=== PATIENT | male | born 2005 | race Caucasian/White ===

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

== ENCOUNTER 2024-06-04 08:48 | Outpatient (CLI) | payer BC, SELFPAY | END 2024-06-04 08:49 | disposition home or self-care (01) | PROVIDERS: PCP Internal Medicine; Visit Provider Internal Medicine | DX: Z13.228 Encounter for screening for other metabolic disorders (principal); Z13.6 Encounter for screening for cardiovascular disorders | CPT/HCPCS: 80053; 80061 ==

== ENCOUNTER 2024-07-17 02:10 | Outpatient (CLI) | payer BC, SELFPAY | END 2024-07-17 02:11 | disposition home or self-care (01) | PROVIDERS: PCP Internal Medicine; Visit Provider Family Medicine | DX: S69.91XA Unspecified injury of right wrist, hand and finger(s), initial encounter (principal); Y04.2XXA Assault by strike against or bumped into by another person, initial encounter; Y92.169 Unspecified place in school dormitory as the place of occurrence of the external cause | CPT/HCPCS: A0998 ==

== ENCOUNTER 2024-07-17 02:28 | Emergency (ER) | payer BC, SELFPAY ==
--- OUTSIDE RECORDS SUMMARY | 2024-07-17 02:30 | XMS_ITS | Encounter Summary ---
Author Organization [facility], [facility], [facility], and Affiliates Address [address] [place] [address] Care Team Providers Care Heel Seater Name Role Phone Provider, Not Confirmed Primary Care Provider Un available Epifanio Caicedo MD Primary Care Provider Encounter Details Date Type Department Care Team (Late st Contact Info) Description 10/06/2020 Orders Only [facility] Sports Medicine [address] [place] [id number] Sharon Haynes MD [address] [place] [id number] Left knee pain, unspecified chronicity (Primary Dx) Social History Tobacco Use Types Packs/Day Years Used Date Smoking Tobacco: Never Assessed Sex and Gender Information Value Date Recorded Sex Assigned at Not on file Legal Sex Male 2:16 PM PST Gender Identity Not on file Sexual Orientation Not on file documented as of this encounter Plan of Treatment Not on file documented as of this encounter Results * XR Knee 3 Views, Left (10/07/2020 5:29 PM PDT) Anatomical Region Laterality Modality Knee Left Digital Radiogra phy 10/07/2020 6:04 PM PDT Impressions 10/07/2020 6:13 PM PDT Small suprapatellar joint effusion with medial knee soft tissue swelling. No acute osseous abnormality. Report dictated by: Kavita De Anda, signed by: Scottie Espinal MD Department of Radiology and Biomedical Imaging Narrative 10/07/2020 6:13 PM PDT XR KNEE 3 VIEWS, LEFT 10/07/2020 5:29 PM INDICATION: Age: 14 years Gender: Male. History: pain vs injury r/o fracture COMPARISON: None FINDINGS: Hardware: None Bones/joints: No evidence of acute fracture. Osseous mineralization subjectively within normal limits. Joints spaces appear normal. Small suprapatellar joint effusion. The patella is well situated within the trochlear groove on the merchant views. Soft tissues: Medial knee soft tissue swelling most conspicuous on the merchant view Procedure Note Scottie Espinal MD - 10/07/2020 XR KNEE 3 VIEWS, LEFT 10/07/2020 5:29 PM INDICATION: Age: 14 years Gender: Male. History: pain vs injury r/ofracture COMPARISON: None FINDINGS: Hardware: None Bones/joints: No evidence of acute fracture. Osseous mineralizationsubjectively within normal limits. Joints spaces appear normal. Smallsuprapatellar joint effusion. The patella is well situated within thetrochlear groove on the merchant views. Soft tissues: Medial knee soft tissue swelling most conspicuous on themerchant view IMPRESSION: Small suprapatellar joint effusion with medial knee soft tissue swelling.No acute osseous abnormality. Report dictated by: Kavita De Anda, signed by: Scottie Espinal MD Department of Radiology and Biomedical Imaging Sharon Haynes MD IMG DIAGNOSTIC IMAGING OR DERABLES Final Result documented in this encounter Visit Diagnoses Diagnosis Left knee pain, unspecified chronicity- Primary Left knee pain, unspecified chronicity documented in this encounter Care Teams Heel Seater Relationship Specialty Start Date End Date Provider, Not Confirmed PCP - General 06/08/20 10/25/20 Epifanio Caicedo MD [address] [place] [id number] PCP - General Pediatrics 10/26/20 documented as of this encounter
--- OUTSIDE RECORDS SUMMARY | 2024-07-17 02:30 | XMS_ITS | Referral Summary ---
Author Organization [facility], [facility], [facility], and Affiliates Address [address] [place] [address] Care Team Providers Care Money Position Officer Name Role Phone Epifanio Caicedo MD Primary Care Provider Allergies Active Allergy Reactions Criticality Noted Date Comments Milk Rash Low 10/07/2020 GI upset Medications * This document contains information received from the source organization and may not represent a complete record from that organization. No known medications Active Problems Problem Noted Date Diagnosed Date Dislocation of left patella 11/14/2020 Immunizations Name Administration Dates Next Due IZI-collecte Sars-Cov-2 Vaccine (Purple Top) 1,06/08/2020 Social History Tobacco Use Types Packs/Day Years Used Date Smoking Tobacco: Never Smokeless Tobacco: Never Alcohol Use Standard Drinks/Week Comments Never 0 (1 standard drink = 0.6 oz pur e alcohol) Sex and Gender Information Value Date Recorded Sex Assigned at Not on file Legal Sex Male 2:16 PM PST Gender Identity Not on file Sexual Orientation Not on file Last Filed Vital Signs Vital Sign Reading Time Taken Comments Blood Pressure - - Pulse - - Temperature - - Respiratory Rate - - Oxygen Saturation - - Inhaled Oxygen Concentration - - Weight 72.6 kg (160 lb) 10/21/2020 2:02 PM PDT Height 188 cm (6' 2) 10/21/2020 2:02 PM PDT Body Mass Index 20.54 10/21/2020 2:02 PM PDT Plan of Treatment [place] [id number] [employer] Care Teams Money Position Officer Relationship Specialty Start Date End Date Epifanio Caicedo MD [address] [place] [id number] PCP - General Pediatrics 10/26/20
--- OUTSIDE RECORDS SUMMARY | 2024-07-17 02:30 | XMS_ITS | Clinical Summary ---
Author Organization [facility], [facility], [facility], and Affiliates Address [address] [place] [address] Care Team Providers Care Store Person Name Role Phone Epifanio Caicedo MD Primary [...] 11/14/2020 Immunizations Name Administration Dates Next Due Pfizer Sars-Cov-2 Vaccine (Purple Top) 1,06/08/2020 Social History [...] 10/21/2020 2:02 PM PDT Plan of Treatment Health Maintenance Due Date Last Done Comments Hepatitis B Routine Screening 2003 Chlamydia and Gonorrhea Screening 2019 HIV Routine Screening 10/10/2021 Hepatitis C Routine Screening 10/10/2021 Tobacco Screening 10/10/2021 Covid-19 Vaccine ( season) 2023 11/06/2021, 02/09/2021, 06/30/2020, Additional history exists Influenza Vaccines (Season Ended) 2024 11/06/2021, 12/14/2020, 11/18/2019, Additional history exists Td Immunization 11/26/2024 11/26/2014 Zoster Vaccines (1 of 2) 10/10/2053 Hepatitis B Vaccines Completed 07/13/2004, 01/20/2004, 2003 Pneumococcal Vaccine (0-49 years) Aged Out 01/10/2005, 01/10/2005, 04/13/2004, Additional history exists No longer eligible based on patient's age to complete this topic Tdap Immunization Completed 11/26/2014 HPV Vaccines Completed 11/18/2019, 04/25/2018 Meningitis B Vaccines Completed 10/02/2022, [address] [place] [id number] [employer] Care Teams Store Person Relationship Specialty Start Date End Date Epifanio Caicedo MD [address] [place] [id number] PCP - General Pediatrics 10/26/20
--- NOTE | 2024-07-17 02:32 | CRLHL7_ITS ---
For Patients: As a result of the Cures Act, medical imaging exams and procedure reports are released immediately into your electronic medical record. You may view this report before your referring provider. If you have questions, please contact your health care provider. Indication: Right hand injury. Technique: Right hand 3 views. Comparison: None. Findings/impression: Bones: Acute fracture of the 5th metacarpal head/neck with mild displacement and angulation. Intra-articular involvement of the MCP joint. Joint spaces: Unremarkable. Soft tissues: Soft tissue swelling adjacent to the 5th MCP joint. Dictated by Luis Alfredo Menezes MD @ 07/17/2024 2:57:34 AM (Electronically Signed)
[2024-07-17 02:33] VITALS: BP 151/82; PULSE 85; RESP 18; TEMP 36.9; O2SAT 99; BMI 23.1
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
--- OUTSIDE RECORDS SUMMARY | 2024-07-17 03:49 | XMS_ITS | Clinical Summary ---
Author Organization [facility] Address [address] [place] [id number] Care Team Providers Care Movie Extra Name Role Phone None Primary Care Provider Unavailabl e Allergies No known active allergies Medications No known medications Encounters Date Type Department Care Team Description 05/28/2024 9:05 AM CDT Office Visit [facility] [address] [place] [address] Figueroa Finnegan MD Musculoskeletal Problem (Consultation for LEFT Knee Pain and Swelling. Woke up 3-4 weeks ago with severe pain/History of subluxation /) 05/27/2024 Travel from Last 3 Months Social History Tobacco Use Types Packs/Day Years Used Date Smoking Tobacco: Never Smokeless Tobacco: Never Tobacco Cessation:Counseling Given: Yes Alcohol Use Standard Drinks/Week Comments Yes 0 (1 standard drink = 0.6 oz pur e alcohol) 4 drinks every other week Social Connections Answer Date Recorded Do you often feel lonely or isolated from those around you? 0 05/28/2024 Financial Resource Strain Answer Date R ecorded Difficulty of Paying Living Expenses 3 05/28/2024 Difficulty of Paying Living Expenses Not on file 05/28/2024 Food Insecurity Answer Date Recorded Do you worry your food will run out before you are able to buy more? 1 05/28/2024 Transportation Needs Answer Date Record ed Does lack of transportation keep you from medica l appointments? 1 05/28/2024 Does lack of transportation keep you from work, meetings or getting things that you need? 1 05/28/2024 Housing Stability Answer Date Recorded What is your housing situation today? 1 05/28/2024 Utilities Answer Date Recorded Do you have trouble paying f or utilities (for example, heat, electricity, water, phone)? 1 05/28/2024 Sex and Gender Information Value Date Recorded Sex Assigned at Male 05/27/2024 7:37 PM CDT Legal Sex Male 2:38 PM CDT Gender Identity Male 05/27/2024 7:37 PM CDT Sexual Orientation Straight 05/27/2024 7: 37 PM CDT Obstetrics History Last Filed Vital Signs Vital Sign Reading Time Taken Comments Blood Pressure 123/75 05/28/2024 9:31 AM CDT rec heck BP Pulse 76 05/28/2024 9:28 AM CDT Temperature - - Respiratory Rate - - Oxygen Saturation 100% 05/28/2024 9:28 AM CDT Inhaled Oxygen Concentration - - Weight 82.6 kg (182 lb) 05/28/2024 9:28 AM CDT Height 191.5 cm (6' 3.39) 05/28/2024 9:28 AM CD T Body Mass Index 22.51 05/28/2024 9:28 AM CDT Plan of Treatment Health Maintenance Due Date Last Done Comments Well Child Check for age 3-20 09/09/2006 Tdap 10/10/2014 Depression screening for age 12+ 2015 HIV for age 15-65 10/10/2018 HPV series for age 9-26 (1 - Male 3-dose series) 10/10/2018 Hepatitis C screening for age 18-79 10/10/2021 Hepatitis B series for 19+ (1 of 3 - 19+ 3-dose series) 10/10/2022 Tetanus booster 2023 COVID-19 vaccine series ( - 2023- season) 2023 01/14/2023, 11/06/2021, 02/09/2021, Additional history exists Influenza Vaccine (Season Ended) 2024 BMI (ht and wt on same day) for age 18+ 05/28/2025 05/28/2024 Meningococcal series for age 11-21 Aged Out No longer eligible based on patient's age to complete this topic Pneumococcal series for age 6-49 Aged Out No longer eligible based on patient's age to complete this topic Insurance [facility] Care Teams Movie Extra Relationship Specialty Start Date End Date None . PCP - General 05/28/24
[2024-07-17 03:51] VITALS: BP 135/74; PULSE 83; RESP 18; TEMP 36.9; O2SAT 99
[2024-07-17 03:52] VITALS: BP 135/74; PULSE 83; RESP 18; TEMP 36.9
== END 2024-07-17 03:53 | disposition home or self-care (01) ==
LOC: ED 03:47
PROVIDERS: Emergency Provider Family Medicine; PCP Internal Medicine
DX: S62.306A Unspecified fracture of fifth metacarpal bone, right hand, initial encounter for closed fracture (principal); Y04.2XXA Assault by strike against or bumped into by another person, initial encounter
CPT/HCPCS: 29125; 73130; 99282; 99283